=== PATIENT | male | born 2000 | race Caucasian/White ===

== ENCOUNTER 2021-07-31 23:45 | Emergency (ER) | payer BC ==
[~2021-07-31] VITALS: Ht 175.3 cm; Wt 63.0 kg
[2021-07-31 23:45] VITALS: BP 121/59
[2021-08-01] MEDS ORDERED: IV NORMAL SALINE 1,000ML 1,000 ML IV ONE
--- NOTE | 2021-08-01 00:02 | PHYS DOC ---
General Adult EDM: Chief Complaint: FLANK PAIN HPI: HPI: 21-year-old male presents with right flank pain. He has been having this pain for a couple of days. It is an intermittent and stabbing sensation. Someone told him it was a ruptured appendix 2 days ago. He did not get evaluated at that time. Patient states that the pain today is better than it was yesterday. He just figured he should come in for evaluation. Patient has no history of kidney stones. He has not noticed hematuria. Denies dysuria or urinary frequency. Denies falls or trauma. Review of Systems: Review of Systems: Constitutional: Denies fever or chills Eyes: Denies change in visual acuity HENT: Denies nasal congestion or sore throat Respiratory: Denies cough or shortness of breath Cardiovascular: Denies chest pain or edema GI: Right lower quadrant abdominal pain. Denies nausea, vomiting, bloody stools or diarrhea : Denies dysuria Musculoskeletal: Right flank pain Integument: Denies rash Neurologic: Denies headache, focal weakness or sensory changes Endocrine: Denies polyuria or polydipsia Lymphatic: Denies swollen glands Psychiatric: Denies depression or anxiety Physical Exam: PE: Constitutional: Well developed, well nourished, no acute distress, non-toxic appearance. [] HENT: Normocephalic, atraumatic, bilateral external ears normal, oropharynx moist, no oral exudates, nose normal. [] Eyes: PERRLA, EOMI, conjunctiva normal, no discharge. [] Neck: Normal range of motion, no tenderness, supple, no stridor. [] Cardiovascular: Heart rate regular rhythm, no murmur [] Lungs & Thorax: Bilateral breath sounds clear to auscultation [] Abdomen: Bowel sounds normal, soft, right lower quadrant tenderness, no masses, no pulsatile masses. [] Skin: Warm, dry, no erythema, no rash. [] Back: No tenderness, right CVA tenderness. [] Extremities: No tenderness, no cyanosis, no clubbing, ROM intact, no edema. [] Neurologic: Alert and oriented X 3, normal motor function, normal sensory function, no focal deficits noted. [] Psychologic: Affect normal, judgement normal, mood normal. [] EKG: EKG: [] Radiology/Procedures: Radiology/Procedures: [] Heart Score: C/O Chest Pain: N/A Risk Factors: Risk Factors: DM, Current or recent (<one month) smoker, HTN, HLP, family history of CAD, obesity. Risk Scores: Score 0 - 3: 2.5% MACE over next 6 weeks - Discharge Home Score 4 - 6: 20.3% MACE over next 6 weeks - Admit for Clinical Observation Score 7 - 10: 72.7% MACE over next 6 weeks - Early Invasive Strategies Course & Med Decision Making: Course & Med Decision Making Pertinent Labs and Imaging studies reviewed. (See chart for details) On reexamination, the patient mentioned that he had this pain developed after helping carry a very heavy trailer. He admits that the pain has been getting better. The pain is mostly in his back radiating around to his flank area. When I examined him a second time in his right lower quadrant he did not have pain. This appears to be much more likely to be muscle strain of the right paraspinal muscles as well as the obliques. I will treat him with Flexeril. I have also advised that he continue taking ibuprofen 603 times a day. He is stable for discharge at this time. [] Nat Disclaimer: Nat Disclaimer: This electronic medical record was generated, in whole or in part, using a voice recognition dictation system. Departure Departure: Impression: Primary Impression: Low back strain Qualified Codes: S39.012A - Strain of muscle, fascia and tendon of lower back, initial encounter Disposition: HOME / SELF CARE / HOMELESS Condition: STABLE Referrals: PCP,NO (PCP) Patient Instructions: Low Back Strain with Rehab-[facility] Scripts Cyclobenzaprine Hcl (CYCLOBENZAPRINE HCL) 10 Mg Tablet 1 TAB PO TID PRN for MUSCLE SPASMS, #30 TAB Prov: DOMI BARAJAS DO 08/01/21 DOMI BARAJAS DO Aug 01, 2021 00:02
[2021-08-01] MEDS ORDERED: CYCL10TA19 PO (00:41)
[2021-08-01] MEDS ORDERED: CYCLOBENZAPRINE 10 MG TABLET. PO ONE (00:45)
[2021-08-01] MEDS ORDERED: CYCLOBENZAPRINE 10 MG TABLET. ONE (00:45)
== END 2021-08-01 00:50 | disposition home or self-care (01) ==
LOC: ER 23:45
DX: S39.012A Strain of muscle, fascia and tendon of lower back, initial encounter (principal); X58.XXXA Exposure to other specified factors, initial encounter; Y93.89 Activity, other specified; Y92.89 Other specified places as the place of occurrence of the external cause; Y99.8 Other external cause status
CPT/HCPCS: 99283

== ENCOUNTER 2021-09-13 20:16 | Emergency (ER) | payer BC ==
[~2021-09-13] VITALS: Ht 172.7 cm; Wt 68.5 kg
[~2021-09-13 20:16] MED LIST: CYCL10TA19 PO
[2021-09-13] MEDS ORDERED: IV NORMAL SALINE 1,000ML 1,000 ML IV ONE (20:30)
[2021-09-13] MEDS ORDERED: KETOROLAC 15 MG/ML VIAL. IVP ONE (20:30)
--- NOTE | 2021-09-13 20:52 | PHYS DOC ---
Past History Past Surgical History: No Surgical History (MONE SEO APRN) Alcohol Use: None (MONE SEO APRN) General Adult EDM: Chief Complaint: ABDOMINAL PAIN HPI: HPI: Patient is a 21-year-old male that presents with right-sided flank pain that radiates to right upper quadrant. Patient is describing pain as a dull, constant pain. Denies taking anything for discomfort before arrival. Denies pain with urination. Denies nausea/vomiting/diarrhea. Denies fever. 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 Denies alcohol or smoking. Patient is not vaccinated for COVID-19. No medical history. (MONE SEO APRN) Review of Systems: Review of Systems: ROS At least 10 ROS systems have been reviewed and are negative except as documented in the HPI. General: Negative except as outlined in HPI above. Skin: Negative except as outlined in HPI above. HEENT: Negative except as outlined in HPI above. Neck: Negative except as outlined in HPI above. Respiratory: Negative except as outlined in HPI above.. Cardiovascular: Negative except as outlined in HPI above. Abdomen: Negative except as outlined in HPI above. : Negative except as outlined in HPI above. Back/MSK: Negative except as outlined in HPI above. Neuro: Negative except as outlined in HPI above. Psych: Negative except as outlined in HPI above. (MONE SEO APRN) Current Medications: Current Meds: Current Medications Medications (Trade) Dose Ordered Sig/Endy Start Time Stop Time Status Last Admin Dose Admin Ketorolac Tromethamine (Toradol 15mg Vial) 15 mg 1X ONCE 09/13/21 20:30 09/13/21 20:33 DC Sodium Chloride 1,000 ml @ 1,000 mls/hr 1X ONCE 09/13/21 20:30 09/13/21 21:29 (MONE SEO APRN) Allergies: Allergies: Allergies Coded Allergies Type Severity Reaction Last Updated Verified No Known Drug Allergies 08/01/21 No (MONE SEO APRN) Physical Exam: PE: Constitutional: Well developed, well nourished, no acute distress, non-toxic appearance. [] HENT: Normocephalic, atraumatic, bilateral external ears normal, oropharynx moist, no oral exudates, nose normal. [] Eyes: PERRLA, EOMI, conjunctiva normal, no discharge. [] Neck: Normal range of motion, no tenderness, supple, no stridor. [] Cardiovascular:Heart rate regular rhythm, no murmur [] Lungs & Thorax: Bilateral breath sounds clear to auscultation [] Abdomen: Bowel sounds normal, soft, right upper quadrant tenderness Skin: Warm, dry, no erythema, no rash. [] Back: No tenderness, CVA tenderness. Extremities: No tenderness, no cyanosis, no clubbing, ROM intact, no edema. [] Neurologic: Alert and oriented X 3, normal motor function, normal sensory function, no focal deficits noted. [] Psychologic: Affect normal, judgement normal, mood normal. [] (MONE SEO APRN) Current Patient Data: Vital Signs: Vital Signs Date Time Temp Pulse Resp B/P (MAP) Pulse Ox O2 Delivery O2 Flow Rate FiO2 09/13/21 20:25 97.9 80 20 134/72 (92) 100 Room Air (MONE SEO APRN) EKG: EKG: [] (MONE SEO APRN) Radiology/Procedures: Radiology/Procedures: []EXAM: CT Abdomen and Pelvis without IV contrast CLINICAL HISTORY: flank pain, right, SINCE THIS MORNING COMPARISON: none TECHNIQUE: Helical CT of the abdomen and pelvis without intravenous contrast. Axial, coronal and sagittal reformatted images were generated. PQRS compliance statement - One or more of the following individualized dose reduction techniques were utilized for this study: 1. Automated exposure control 2. Adjustment of the mA and/or kV according to patient size 3. Use of iterative reconstruction technique FINDINGS: Lack of intravenous contrast limits evaluation of solid organs, vasculature, and lymph nodes. Lower chest: Lung bases are clear. Abdomen and Pelvis: Focal low-attenuation along the falciform ligament likely focal fatty infiltration. Gallbladder is normal. No biliary duct dilatation. Pancreas, spleen and adrenal glands are unremarkable. No focal renal lesion. There is moderate right hydronephrosis and proximal hydroureter to level of a 1.1 x 0.7 cm calculus. Gallbladder wall thickening, may be related to underdistention or cystitis. Moderate colonic stool content. No small or large bowel dilatation. No bowel obstruction. Appendix is normal. No abdominal or pelvic ascites. No abdominal or pelvic lymphadenopathy. No aggressive osseous lesion is seen. IMPRESSION: 1. 1.1 cm calculus within the proximal right ureter with moderate associated right hydronephrosis and proximal hydroureter. 2. Bladder wall thickening may be seen with cystitis. Electronically signed by: Félix Martin MD (09/13/2021 9:35 PM) [facility] (MONE SEO APRN) Heart Score: C/O Chest Pain: No Risk Factors: Risk Factors: DM, Current or recent (<one month) smoker, HTN, HLP, family history of CAD, obesity. Risk Scores: Score 0 - 3: 2.5% MACE over next 6 weeks - Discharge Home Score 4 - 6: 20.3% MACE over next 6 weeks - Admit for Clinical Observation Score 7 - 10: 72.7% MACE over next 6 weeks - Early Invasive Strategies (MONE SEO APRN) Course & Med Decision Making: Course & Med Decision Making Pertinent Labs and Imaging studies reviewed. (See chart for details) [] 20-year-old male presents with right-sided flank pain that radiates to right upper quadrant. Pain was treated in the emergency room. Work-up in ER consist of urinalysis, blood work, CT abdomen and pelvis. Patient was also given NS bolus. Urine was positive for blood. CT abdomen pelvis shows 1.2 cm nonobstructing stone on the right side. Potassium of 3.2. Patient given 40 mEq of potassium. WBC slightly elevated at 13 1. No signs of infection. Patient states that pain has improved after Toradol was given. Discussed all results with patient. Explained to patient that he will pass the stone at home. Given prescription for Flomax and pain medication for home. Patient should also take ibuprofen and Tylenol for discomfort. Patient given a strainer. Advised patient to follow-up with PCP or return to the ER if he has worsening symptoms or concerns. Return to the emergency room if you have worsening symptoms or concerns. Patient is hemodynamically stable upon disposition. (MONE SEO APRN) Dragon Disclaimer: Dragon Disclaimer: This electronic medical record was generated, in whole or in part, using a voice recognition dictation system. (MONE SEO APRN) Departure Departure: Impression: Primary Impression: Kidney stone on right side Additional Impression: Hypokalemia Disposition: HOME / SELF CARE / HOMELESS Condition: STABLE Referrals: PCP,NO (PCP) Patient Instructions: Kidney Stones, [id number] Additional Instructions: You are seen in emergency room for flank pain and abdominal pain. CT of your abdomen showed a 1.2 cm kidney stone. Sending you home with Flomax and hydrocodone for discomfort. Please take as directed. Follow-up with your PCP if pain does not resolve. You should ask the stone on your own at home. I am giving you a strainer as well to catch it when you urinate. You are drinking plenty of fluids. You can also take ibuprofen for breakthrough pain. Follow-up with your PCP for further management. Return to the emergency room with worsening symptoms or concerns. EMERGENCY DEPARTMENT GENERAL DISCHARGE INSTRUCTIONS Thank you for coming to [facility] (ED) today and trusting us with you care. We trust that you had a positivie experience in our Emergency Department. If you wish to speak to the department management, you may call the director at [phone]. YOUR FOLLOW UP INSTRUCTIONS ARE FOLLOWS: 1. Do you have a private Doctor? If you do not have a private doctor, please ask for a resource list of physicians or clinics that may be able to assist you with follow up care. 2. The Emergency Physician has interpreted your x-rays. The X-Ray specialist will also review them. If there is a change in the findings, you will be notified in 48 hours when at all possible. 3. A lab test or culture has been done, your results will be reviewed and you will be notified if you need a change in treatment. ADDITIONAL INSTRUCTIONS AND INFORMATION: 1. Your care today has been supervised by a physician who is specially trained in emergency care. Many problems require more than one evaluation for a complete diagnosis and treatment. We recommend that you schedule your follow up appointment as recommended to ensure complete treatment of you illness or injury. If you are unable to obtain follow up care and continue to have a problem, or if your condition worsens, we recommend that you return to the ED. 2. We are not able to safely determine your condition over the phone nor are we able to give sound medical advice over the phone. For these safety reasons, if you call for medical advice we will ask you to come to the ED for further evaluation. 3. If you have any questions regarding these discharge instructions please call the ED at [phone]. SAFETY INFORMATION: In the interest of safety, wellness, and injury prevention; we encourage you to wear your sealbelt, if you smoke; quite smoking, and we encourage family to use a protective helmet for bicycling and other sporting events that present an increased risk for head injury. IF YOUR SYMPTOMS WORSEN OR NEW SYMPTOMS DEVELOP, OR YOU HAVE CONCERNS ABOUT YOUR CONDITION; OR IF YOUR CONDITION WORSENS WHILE YOU ARE WAITING FOR YOUR FOLLOW UP APPOINTMENT; EITHER CONTACT YOUR PRIMARY CARE DOCTOR, THE PHYSICIAN WHOSE NAME AND NUMBER YOU WERE GIVEN, OR RETURN TO THE ED IMMEDIATELY. Scripts Hydrocodone Bit/Acetaminophen (HYDROCODONE-APAP 5-325 ) 1 Each Tablet 0.5-1 TAB PO PRN Q6HRS PRN for PAIN for 3 Days, #12 TAB 0 Refills Prov: MONE SEO APRN 09/13/21 Tamsulosin Hcl (FLOMAX) 0.4 Mg Cap.er.24h 1 CAP PO DAILY for kidney stone for 14 Days, #14 CAP 0 Refills Prov: MONE SEO APRN 09/13/21 Attending Signature Attending Signature I have participated in the care of this patient and I have reviewed and agree with all pertinent clinical information above including history, exam, and recommendations. (HAYDEE MCKOY MD) Attending Signature Attending Signature I have participated in the care of this patient and I have reviewed and agree with all pertinent clinical information above including history, exam, and recommendations. (HAYDEE MCKOY MD) Dragon Disclaimer This chart was dictated in whole or in part using Voice Recognition software in a busy, high-work load, and often noisy Emergency Department environment. It may contain unintended and wholly unrecognized errors or omissions. (HAYDEE MCKOY MD) MONE SEO APRN Sep 13, 2021 20:52 HAYDEE MCKOY MD Sep 14, 2021 18:38
[2021-09-13 21:26] LABS: BASO # 0.1 x10^3/uL (0.0-0.2); BASO % 1 % (0-3); EOS # 0.1 x10^3/uL (0.0-0.7); EOS % 1 % (0-3); HEMATOCRIT 41.1 % (39.0-53.0); HEMOGLOBIN 13.9 g/dL (13.0-17.5); LYMPH # 1.4 x10^3/uL (1.0-4.8); LYMPH % 10 % (24-48); MEAN CORPUSCULAR HEMOGLOBIN 30 pg (25-35); MEAN CORPUSCULAR HGB CONC 34 g/dL (31-37); MEAN CORPUSCULAR VOLUME 87 fL (79-100); MONO % 8 % (0-9); NEUT # 10.5 x10^3uL (1.8-7.7); NEUT % 80 % (31-73); PLATELET COUNT 304 x10^3/uL (140-400); RED CELL DISTRIBUTION WIDTH 13.7 % (11.5-14.5); WHITE BLOOD COUNT 13.1 x10^3/uL (4.0-11.0)
[2021-09-13 21:30] LABS: CALCIUM 9.2 mg/dL (8.5-10.1); CREATININE 1.4 mg/dL (0.7-1.3); GFR 62.8; POTASSIUM 3.2 mmol/L (3.5-5.1)
[2021-09-13 21:33] LABS: TOTAL BILIRUBIN 0.7 mg/dL (0.2-1.0); TOTAL PROTEIN 7.9 g/dL (6.4-8.2)
[2021-09-13 21:35] LABS: BILIRUBIN,URINE NEG (NEG); CLARITY,URINE CLEAR; COLOR,URINE YELLOW; GLUCOSE,URINE NEG (NEG); NITRITE,URINE NEG (NEG); UROBILINOGEN,URINE 0.2 mg/dL (0.2 mg/dL)
[2021-09-13 21:36] LABS: BACTERIA,URINE FEW /HPF (0-FEW)
--- NOTE | 2021-09-13 21:37 | RAD ---
EXAM: CT Abdomen and Pelvis without IV contrast CLINICAL HISTORY: flank pain, right, SINCE THIS MORNING COMPARISON: none TECHNIQUE: Helical CT of the abdomen and pelvis without intravenous contrast. Axial, coronal and sagi ttal reformatted images were generated. PQRS compliance statement - One or more of the following individualized dose reduction techniques wer e utilized for this study: 1. Automated exposure control 2. Adjustment of the mA and/or kV according to patient size 3. Use of iterative reconstruction technique FINDINGS: Lack of intravenous contrast limits evaluation of solid organs, vasculature, and lymph nodes. Lower chest: Lung bases are clear. Abdomen and Pelvis: Focal low-attenuation along the falciform ligament likely focal fatty infiltration. Gallbladder is no rmal. No biliary duct dilatation. Pancreas, spleen and adrenal glands are unremarkable. No focal suze l lesion. There is moderate right hydronephrosis and proximal hydroureter to level of a 1.1 x 0.7 cm calculus. Gallbladder wall thickening, may be related to underdistention or cystitis. Moderate colonic stool content. No small or large bowel dilatation. No bowel obstruction. Appendix is normal. No abdominal or pelvic ascites. No abdominal or pelvic lymphadenopathy. No aggressive osseou s lesion is seen. IMPRESSION: 1. 1.1 cm calculus within the proximal right ureter with moderate associated right hydronephrosis an d proximal hydroureter. 2. Bladder wall thickening may be seen with cystitis. Electronically signed by: Félix Martin MD (09/13/2021 9:35 PM) [facility]
[2021-09-13 21:54] VITALS: BP 131/78
[2021-09-13] MEDS ORDERED: TAMS0.4C97 PO (21:59)
[2021-09-13] MEDS ORDERED: HYDR-2155 PO (21:59)
[2021-09-13] MEDS ORDERED: POTASSIUM CHLORIDE 20 MEQ TABLET.ER. PO ONE (22:00)
[2021-09-13] MEDS ORDERED: TAMSULOSIN 0.4 MG CAP.ER.24H. PO ONE (22:15)
== END 2021-09-13 22:10 | disposition home or self-care (01) ==
LOC: ER 20:16
DX: N20.0 Calculus of kidney (principal); E87.6 Hypokalemia
CPT/HCPCS: 36415; 74176; 80053; 81001; 83690; 85025; 87086; 96361; 96374; 99284; J1885; J7030